=== PATIENT | female | born 1940 | race Hispanic/Latino ===

== ENCOUNTER → 2018-09-05 | Outpatient (CLI) | payer OTHER ==
[~2018-09-05] MED LIST: ACET1TAB12 PO; ASPI-1197 PO; ATEN1TAB3 PO; BENA40TA9 PO; CALC-1106 PO; FE F1CAP33 PO; METF-444 PO; PRAV40TA3 PO; SENN-107 PO
== END | disposition home or self-care (01) ==
LOC: OIH 09:51
PROVIDERS: ATTEND Internal Medicine Gastroenterology
DX: C18.3 Malignant neoplasm of hepatic flexure (principal); I25.10 Atherosclerotic heart disease of native coronary artery without angina pectoris; K44.9 Diaphragmatic hernia without obstruction or gangrene; M47.895 Other spondylosis, thoracolumbar region; N32.89 Other specified disorders of bladder; I70.90 Unspecified atherosclerosis; M85.88 Other specified disorders of bone density and structure, other site; Z90.49 Acquired absence of other specified parts of digestive tract
CPT/HCPCS: 74176

== ENCOUNTER 2019-03-30 21:31 | Inpatient (IN) | payer OTHER ==
[~2019-03-30] VITALS: Ht 152.4 cm; Wt 71.4 kg
[2019-03-30 22:24] LABS: BASOPHILS % (AUTO) 0.5 % (0.0-5.0); EOSINOPHILS % (AUTO) 0.4 % (0.0-8.0); HEMATOCRIT 37.7 % (36-48); LYMPHOCYTES % (AUTO) 11.8 % (21.0-51.0); MEAN CORPUSCULAR HEMOGLOBIN 33.8 pg (27.0-33.0); MEAN CORPUSCULAR HGB CONC 35.1 g/dL (32.0-36.0); MEAN CORPUSCULAR VOLUME 96.2 fL (79-99); MONOCYTES % (AUTO) 5.7 % (3.0-13.0); NEUTROPHILS % (AUTO) 81.6 % (40.0-77.0); PLATELET COUNT (AUTO) 207 K/uL (130-400); RED BLOOD CELL COUNT(AUTO) 3.92 MIL/uL (4.00-5.50); RED CELL DISTRIBUTION WIDTH 13.6 % (11.0-15.5); WHITE BLOOD COUNT (AUTO) 13.6 K/uL (4.8-10.8)
[2019-03-30 22:39] LABS: APPEARANCE,URINE Clear (CLEAR); BILIRUBIN,URINE Negative (NEGATIVE); COLOR,URINE Yellow (YELLOW); GLUCOSE, URINE (UA) Negative (NEGATIVE); KETONES,URINE Trace mg/dL (NEGATIVE); LEUKOCYTE ESTERASE ,URINE Trace (NEGATIVE); NITRATE,URINE Negative (NEGATIVE); OCCULT BLOOD,URINE Negative (NEGATIVE); PH,URINE 7.5 (5.0-8.0); PROTEIN,URINE Trace mg/dL (NEGATIVE)
[2019-03-30 22:41] LABS: CREATININE 1.4 mg/dL (0.5-1.5); POTASSIUM 3.8 mmol/L (3.5-5.1)
[2019-03-30 22:46] LABS: BILIRUBIN,TOTAL 0.7 mg/dL (0.2-1.0)
[2019-03-30 23:03] LABS: BACTERIA,URINE None Seen /HPF (None Seen); RBC,URINE 0-1 /HPF (0-1); SQUAMOUS EPITHELIAL CELL,UR Few /HPF (0-2); WBC,URINE 0-1 /HPF (0-1)
[2019-03-30] MEDS ORDERED: ONDANSETRON HCL 4 MG/2 ML VIAL ONE (23:28)
[2019-03-30] MEDS ORDERED: SODIUM CHLORIDE 0.9% 1000ML 1,000 ML IV ONE (23:28)
[2019-03-30] MEDS ORDERED: MORPHINE SULFATE 4 MG/1ML SYG ONE (23:28)
[2019-03-30] MEDS: SODIUM CHLORIDE 0.9% 1000ML 1,000 ML IV SCH (23:39)
[2019-03-30] MEDS ORDERED: ACETAMINOPHEN 325 MG TAB PO PRN ×2 (23:45)
[2019-03-31] MEDS ORDERED: SODIUM CHLORIDE 0.9% 1000ML 1,000 ML IV ONE (01:11)
[2019-03-31] MEDS ORDERED: PHARMACY COMMUNICATION MISC SCH (01:45)
[2019-03-31 01:48] VITALS: BP 128/72
[2019-03-31] MEDS ORDERED: AMLO5TAB9 PO (02:00)
[2019-03-31] MEDS ORDERED: METF-444 PO (02:00)
[2019-03-31] MEDS ORDERED: ESOM20CA60 PO (02:00)
[2019-03-31] MEDS ORDERED: ASPI-1181 PO (02:00)
[2019-03-31] MEDS ORDERED: FOLIC ACID (02:00)
[2019-03-31 04:00] VITALS: BP 139/69
[2019-03-31] MEDS: ZOSYN 3.375GM+NS 50ML 50 ML IV SCH ×3 (04:23→20:34)
--- NOTE | 2019-03-31 05:00 | NUR ---
EMESIS X1, YELLOW COLORED BILE WITH STRONG ODOR. PATIENT CONTINUES WITH PATENT/INTACT NG TUBE TO LIS. ZOFRAN GIVEN FOR NAUSEA. WILL CONTINUE TO MONITOR.
[2019-03-31 07:30] VITALS: BP 140/77
[2019-03-31] MEDS ORDERED: DEXTROSE 50%-WATER 50 ML DISP.SYRIN IV PRN (07:30)
[2019-03-31] MEDS ORDERED: GLUCAGON 1MG KIT 1 MG ML IM PRN (07:30)
[2019-03-31] MEDS ORDERED: HYDRALAZINE HCL 20 MG/ML VIAL IV PRN (07:45)
[2019-03-31] MEDS: CALCIUM 600 + VITAMIN D 400 TABLET PO SCH ×2 (08:00→15:49)
[2019-03-31] MEDS: FAMOTIDINE/PF 20 MG/2 ML VIAL IV SCH (08:52)
[2019-03-31] MEDS: ASPIRIN 81 MG EC TAB PO SCH (09:00)
[2019-03-31] MEDS: AMLODIPINE BESYLATE 5 MG TAB PO SCH (09:00)
[2019-03-31] MEDS: SIMVASTATIN 20 MG TABLET PO SCH (09:00)
[2019-03-31] MEDS: BENAZEPRIL HCL 10 MG TABLET PO SCH (09:00)
[2019-03-31] MEDS: HOME MEDICATION 1 EACH PO SCH (09:00)
[2019-03-31] MEDS: MORPHINE SULFATE 4 MG/1ML SYG IV PRN ×2 (10:33→18:56)
[2019-03-31 11:00] VITALS: BP 130/57
[2019-03-31] MEDS: INSULIN HUMULIN R 100 UNIT/ML 3ML SQ SCH ×3 (12:00→23:59)
[2019-03-31] MEDS: SODIUM CHLORIDE 0.9% 1000ML 1,000 ML IV SCH ×2 (12:00→20:43)
[2019-03-31 16:00] VITALS: BP 142/73
--- NOTE | 2019-03-31 16:54 | NUR ---
INITIAL: Met with pt and family this afternoon to discuss dcp. Pt states that she lives w her spouse(who is bed ridden) and 2 caregivers for her spouse. Prior to admission she was independent w ambulation and ADLs. Pt does not own any DME. Pt states that she feels safe and comfortable to [place]. Will continue to follow and wait for Md recommendations. Addendum: 03/31/19 at 1702 by MIKEY AUGUSTIN CM Amended: Links added.
--- NOTE | 2019-03-31 18:00 | NUR ---
NOTE ADMITTED YESTERDAY WITH DX SBO. NPO. NGT LIWS, NO OUTPUT FOR ME. C/O ABDOMINAL PAIN AT TIMES. NO N/V DURING MY SHIFT BUT SHE DID HAVE SOME DURING THE WASHING TUB OPERATOR. NO DISTRESS OR SOB. BBS CLEAR. BOWEL SOUNDS MINIMAL. KOFFI WITH DR MADRID STOPPED BY AND SPOKE TO PATIENT AND FAMILY ABOUT PLAN OF CARE. SHE WILL BE TREATED CONSERVATIVELY. WILL REMAIN NPO. HE ENCOURAGED HER TO AMBULATE BUT HAS BEEN VERY SLEEPY AND DROWSY FROM PRN PAIN MEDS SHE IS RECEIVING. WILL CONTINUE TO MEDICATE PRN BUT SHE IS GOING TO HAVE TO START MOVING INSTRUCTED S PROBLEM CAN RESOLVE SOONER.
[2019-03-31 20:00] VITALS: BP 139/65
[2019-04-01] VITALS (7 sets, daily range): BP systolic 124–163; BP diastolic 48–71
[2019-04-01] MEDS: MORPHINE SULFATE 2 MG/ML 1ML SYG IV PRN (03:45)
[2019-04-01 04:41] LABS: BASOPHILS % (AUTO) 0.5 % (0.0-5.0); EOSINOPHILS % (AUTO) 1.9 % (0.0-8.0); HEMATOCRIT 33.7 % (36-48); LYMPHOCYTES % (AUTO) 15.2 % (21.0-51.0); MEAN CORPUSCULAR HEMOGLOBIN 33.3 pg (27.0-33.0); MEAN CORPUSCULAR HGB CONC 34.6 g/dL (32.0-36.0); MEAN CORPUSCULAR VOLUME 96.3 fL (79-99); MONOCYTES % (AUTO) 19.2 % (3.0-13.0); NEUTROPHILS % (AUTO) 63.2 % (40.0-77.0); PLATELET COUNT (AUTO) 172 K/uL (130-400); RED CELL DISTRIBUTION WIDTH 13.7 % (11.0-15.5); WHITE BLOOD COUNT (AUTO) 4.3 K/uL (4.8-10.8)
[2019-04-01 04:54] LABS: CREATININE 1.2 mg/dL (0.5-1.5); POTASSIUM 3.7 mmol/L (3.5-5.1)
[2019-04-01] MEDS: ZOSYN 3.375GM+NS 50ML 50 ML IV SCH ×3 (05:09→20:16)
[2019-04-01] MEDS: INSULIN HUMULIN R 100 UNIT/ML 3ML SQ SCH ×3 (06:00→18:00)
[2019-04-01] MEDS: CALCIUM 600 + VITAMIN D 400 TABLET PO SCH ×2 (08:00→17:00)
[2019-04-01] MEDS: BENAZEPRIL HCL 10 MG TABLET PO SCH (08:49)
[2019-04-01] MEDS: ASPIRIN 81 MG EC TAB PO SCH (08:49)
[2019-04-01] MEDS: SODIUM CHLORIDE 0.9% 1000ML 1,000 ML IV SCH ×3 (08:50→20:26)
[2019-04-01] MEDS: SIMVASTATIN 20 MG TABLET PO SCH (08:50)
[2019-04-01] MEDS: HOME MEDICATION 1 EACH PO SCH (08:50)
[2019-04-01] MEDS: AMLODIPINE BESYLATE 5 MG TAB PO SCH (08:50)
--- NOTE | 2019-04-01 09:45 | NUR ---
DR. DIPESH GIVENS HERE TO SEE PATIENT. PATIENT REPORTS TO DR. LANDON SHE HAS NOT HAD A BOWEL MOVEMENT "SINCE LAST WEEK" AND DENIES PRESENCE OF FLATULENCE. MD TOLD PATIENT NO SURGERY PLANNED AT THIS TIME, PLAN IS TO MAINTAIN NG TUBE, NPO STATUS, IV FLUIDS AND IV ANTIBIOTICS FOR NOW. MD ALSO ENCOURAGED PATIENT TO AMBULATE TO PROMOTE BOWEL ACTIVITY.
[2019-04-01] MEDS: FAMOTIDINE/PF 20 MG/2 ML VIAL IV SCH (09:55)
[2019-04-02 03:50] VITALS: BP 158/68
[2019-04-02] MEDS: ZOSYN 3.375GM+NS 50ML 50 ML IV SCH ×3 (04:25→20:26)
[2019-04-02 04:38] LABS: BASOPHILS % (AUTO) 0.9 % (0.0-5.0); EOSINOPHILS % (AUTO) 2.5 % (0.0-8.0); LYMPHOCYTES % (AUTO) 28.7 % (21.0-51.0); MEAN CORPUSCULAR HEMOGLOBIN 32.8 pg (27.0-33.0); MEAN CORPUSCULAR HGB CONC 34.1 g/dL (32.0-36.0); MEAN CORPUSCULAR VOLUME 96.3 fL (79-99); MONOCYTES % (AUTO) 20.1 % (3.0-13.0); NEUTROPHILS % (AUTO) 47.8 % (40.0-77.0); NUCLEATED RED BLOOD CELLS 0.1 % (0.0-0.19); PLATELET COUNT (AUTO) 168 K/uL (130-400); RED BLOOD CELL COUNT(AUTO) 3.53 MIL/uL (4.00-5.50); RED CELL DISTRIBUTION WIDTH 13.4 % (11.0-15.5); WHITE BLOOD COUNT (AUTO) 3.8 K/uL (4.8-10.8)
[2019-04-02 04:41] LABS: CREATININE 1.2 mg/dL (0.5-1.5); POTASSIUM 3.2 mmol/L (3.5-5.1)
[2019-04-02] MEDS: INSULIN HUMULIN R 100 UNIT/ML 3ML SQ SCH ×4 (06:00→18:00)
[2019-04-02] MEDS: ONDANSETRON HCL 4 MG/2 ML VIAL IV PRN ×2 (06:17→22:17)
[2019-04-02] MEDS: MORPHINE SULFATE 2 MG/ML 1ML SYG IV PRN (06:24)
[2019-04-02] MEDS ORDERED: POTASSIUM CHLORIDE 10% ELIXIR 20 MEQ/15 ML UDCUP PO PRN (07:00)
[2019-04-02 07:40] VITALS: BP 143/58
[2019-04-02] MEDS: SODIUM CHLORIDE 0.9% 1000ML 1,000 ML IV SCH ×2 (07:44→20:25)
[2019-04-02] MEDS: CALCIUM 600 + VITAMIN D 400 TABLET PO SCH ×2 (08:00→17:00)
--- NOTE | 2019-04-02 08:00 | NUR ---
INITIAL ASSESSMENT PATIENT LAYING BED, REPORTS "NOT FEELING GOOD". I ASKED PATIENT TO CLARIFY WHAT SHE MEANS BY "NOT FEELING GOOD" AND PATIENT REPLIED "JUST BY STOMACH, I DO NOT FEEL COMFORTABLE AT ALL." I ASSESSED PATIENTS ABDOMEN AND ABDOMEN DOES APPEAR SLIGHTLY DISTENDED. PATIENT REPORTS ABSENCE OF FLATUS OR BOWEL MOVEMENT, REPORT NO NAUSEA/VOMITING. ESTATE TAX EXAMINER NURSE TOLD ME THAT HOSPITALIST ADOLESCENT COORDINATOR INFORMED AND ABDOMINAL XRAY ORDERED, WILL CONTINUE TO MONITOR.
[2019-04-02] MEDS: SIMVASTATIN 20 MG TABLET PO SCH (08:13)
[2019-04-02] MEDS: AMLODIPINE BESYLATE 5 MG TAB PO SCH (08:13)
[2019-04-02] MEDS: ASPIRIN 81 MG EC TAB PO SCH (08:13)
[2019-04-02] MEDS: BENAZEPRIL HCL 10 MG TABLET PO SCH (08:13)
[2019-04-02] MEDS: HOME MEDICATION 1 EACH PO SCH (08:13)
--- NOTE | 2019-04-02 09:00 | NUR ---
REASSESSMENT PATIENT REPORTS "FEELING BETTER AFTER SHOWER". PATIENT RESTING IN BED AND APPEARS COMFORTABLE. I ENCOURAGED PATIENT TO AMBULATE TOLERATED DR. LANDON INSTRUCTED HER YESTERDAY THAT AMBULATION WILL PROMOTE BOWEL ACTIVITY.
[2019-04-02] MEDS: FAMOTIDINE/PF 20 MG/2 ML VIAL IV SCH (10:24)
--- NOTE | 2019-04-02 11:00 | NUR ---
MARILIA PÉREZ PA HERE TO SEE PATIENT. STATES TO CONTINUE CURRENT CONSERVATIVE MANAGEMENT NPO, NG TUBE, IV FLUIDS. ALSO STATES HE SAW ABDOMINAL XRAY RESULTS. PATIENT REPORTS NO FLATUS OR BOWEL MOVEMENT. MD STATES HE ENCOURAGED PATIENT TO AMBULATE. NO NEW ORDERS AT THIS TIME.
[2019-04-02 11:25] VITALS: BP 142/65
[2019-04-02 16:24] VITALS: BP 178/79
[2019-04-02 17:45] VITALS: BP 120/64
--- NOTE | 2019-04-02 17:45 | NUR ---
BLOOD PRESSURE RECHECK BLOOD PRESSURE REPORTED AT 178/79 VIA AUTOMATIC BLOOD PRESSURE MACHINE. OBTAINED PRN APRESOLINE TO ADMINISTER TO PATIENT. WHEN I ENTERED ROOM PATIENT SITTING ON CHAIR AND REPORTS FEELING "DIZZY". OBTAIN MANUAL BLOOD PRESSURE READING 120/64, HR 80. WILL COMMENT THAT PATIENT HAS NOT STOOD UP FOR SEVERAL HOURS, DESPITE FREQUENT ENCOURAGEMENT TO AMBULATE OR REMEMBER TO SWITCH POSITIONS WHILE LAYING IN BED. INSTRUCTED PATIENT THAT WHEN SHE WANTS TO WALK AFTER LAYING IN BED FOR AN EXTENDED PERION, IT IS IMPORTANT TO SIT ON SIDE OF BED FOR SEVERAL MINUTES TO GIVE BODY TIME TO READJUST TO CHANGE IN BLOOR PRESSURE. PATIENT VERBALIZED UNDERSTANDING. DID NOT ADMINISTER APRESOLINE. ASSISTED PATIENT BACK TO BED UNTIL "DIZZY" SENSATION SUBSIDED.
[2019-04-02] MEDS: LIDOCAINE HCL-MPF 1% 2ML VIAL IVP PRN (18:22)
[2019-04-02] MEDS: POTASSIUM CHLORIDE 10MEQ/100ML 100 ML IV PRN (18:23)
[2019-04-02 19:44] VITALS: BP 139/51
[2019-04-02] MEDS: MORPHINE SULFATE 4 MG/1ML SYG IV PRN (22:14)
[2019-04-03] VITALS (7 sets, daily range): BP systolic 114–154; BP diastolic 56–84
[2019-04-03 04:28] LABS: BASOPHILS % (AUTO) 1.1 % (0.0-5.0); EOSINOPHILS % (AUTO) 1.6 % (0.0-8.0); HEMATOCRIT 32.9 % (36-48); LYMPHOCYTES % (AUTO) 27.5 % (21.0-51.0); MEAN CORPUSCULAR HEMOGLOBIN 33.9 pg (27.0-33.0); MEAN CORPUSCULAR HGB CONC 35.1 g/dL (32.0-36.0); MEAN CORPUSCULAR VOLUME 96.5 fL (79-99); MONOCYTES % (AUTO) 24.5 % (3.0-13.0); NEUTROPHILS % (AUTO) 45.3 % (40.0-77.0); NUCLEATED RED BLOOD CELLS 0.1 % (0.0-0.19); PLATELET COUNT (AUTO) 168 K/uL (130-400); RED BLOOD CELL COUNT(AUTO) 3.41 MIL/uL (4.00-5.50); RED CELL DISTRIBUTION WIDTH 13.4 % (11.0-15.5); WHITE BLOOD COUNT (AUTO) 2.6 K/uL (4.8-10.8)
[2019-04-03 04:33] LABS: POTASSIUM 3.4 mmol/L (3.5-5.1)
[2019-04-03] MEDS: ZOSYN 3.375GM+NS 50ML 50 ML IV SCH ×3 (05:05→20:35)
[2019-04-03 05:20] LABS: BAND NEUTROPHILS % (MANUAL) 22 % (0-2); BASOPHILS % (MANUAL) 1 % (0-2); EOSINOPHILS % (MANUAL) 2 % (1-6); LYMPHOCYTES % (MANUAL) 26 % (22-44); MAN.DIFF COMMENT-IMPRESSION MANUAL DIFFERENTIAL; MONOCYTES % (MANUAL) 28 % (2-9); PLATELET MORPHOLOGY COMMENT ADEQUATE; REACTIVE LYMPHOCYTES 2 % (0-0); SEGMENTED NEUTROPHILS % 19 % (40-70)
[2019-04-03] MEDS: INSULIN HUMULIN R 100 UNIT/ML 3ML SQ SCH ×4 (06:00→18:00)
[2019-04-03] MEDS: LACTATED RINGERS 1000ML 1,000 ML IV SCH ×2 (07:35→20:20)
[2019-04-03] MEDS: CALCIUM 600 + VITAMIN D 400 TABLET PO SCH ×2 (08:00→17:00)
[2019-04-03] MEDS: FAMOTIDINE/PF 20 MG/2 ML VIAL IV SCH (09:00)
[2019-04-03] MEDS: BENAZEPRIL HCL 10 MG TABLET PO SCH (09:00)
[2019-04-03] MEDS: ASPIRIN 81 MG EC TAB PO SCH (09:00)
[2019-04-03] MEDS: AMLODIPINE BESYLATE 5 MG TAB PO SCH (09:00)
[2019-04-03] MEDS: HOME MEDICATION 1 EACH PO SCH (09:00)
[2019-04-03] MEDS: SIMVASTATIN 20 MG TABLET PO SCH (09:00)
--- NOTE | 2019-04-03 09:00 | NUR ---
pt denies any flatulance Addendum: 04/03/19 at 1054 by NADYA BAEZA RN Amended: Links added.
--- NOTE | 2019-04-03 13:59 | NUR ---
CM NOTES CHART REVIEWED, PLAN OF CARE PROGRESS ASSESSED, INTAKE STILL NOT ADEQUATE, AMBUALATION/STRENGTH IS GOOD. WILL FOLLOW FOR MD RECOMMENDATION FOR AFTERCARE Addendum: 04/03/19 at 1401 by MARCIANO JIMENEZ RN CM Amended: Links added.
[2019-04-03] MEDS ORDERED: BISACODYL 10 MG SUPP.RECT RC ONE (18:00)
[2019-04-04] VITALS (16 sets, daily range): BP systolic 140–190; BP diastolic 54–96
--- NOTE | 2019-04-04 | NUR ---
PT HAS BEEN STABLE. CONTINUES ON IV FLUIDS. NG SUCTION, INTERMITTENT. DARK GREEN COLOR BEING COLLECTED. AAO3. PERRLA. PT STATES NO PAIN. SUPPOSITORY GIVEN, CURRENTLY NO BM. ABLE TO AMBULATE. CONTINUES ON ABTS.
[2019-04-04] MEDS: LACTATED RINGERS 1000ML 1,000 ML IV SCH (02:29)
[2019-04-04 04:44] LABS: BASOPHILS % (AUTO) 0.5 % (0.0-5.0); EOSINOPHILS % (AUTO) 1.6 % (0.0-8.0); HEMATOCRIT 32.9 % (36-48); LYMPHOCYTES % (AUTO) 19.1 % (21.0-51.0); MEAN CORPUSCULAR HGB CONC 34.5 g/dL (32.0-36.0); MEAN CORPUSCULAR VOLUME 95.5 fL (79-99); NEUTROPHILS % (AUTO) 51.8 % (40.0-77.0); NUCLEATED RED BLOOD CELLS 0.3 % (0.0-0.19); PLATELET COUNT (AUTO) 192 K/uL (130-400); RED BLOOD CELL COUNT(AUTO) 3.44 MIL/uL (4.00-5.50); RED CELL DISTRIBUTION WIDTH 13.3 % (11.0-15.5); WHITE BLOOD COUNT (AUTO) 3.2 K/uL (4.8-10.8)
[2019-04-04 04:54] LABS: POTASSIUM 3.6 mmol/L (3.5-5.1)
[2019-04-04] MEDS: ZOSYN 3.375GM+NS 50ML 50 ML IV SCH ×3 (05:08→20:22)
[2019-04-04] MEDS: INSULIN HUMULIN R 100 UNIT/ML 3ML SQ SCH ×4 (06:00→18:00)
[2019-04-04] MEDS: CALCIUM 600 + VITAMIN D 400 TABLET PO SCH ×2 (08:00→17:00)
[2019-04-04] MEDS: BENAZEPRIL HCL 10 MG TABLET PO SCH (09:00)
[2019-04-04] MEDS: SIMVASTATIN 20 MG TABLET PO SCH (09:00)
[2019-04-04] MEDS: AMLODIPINE BESYLATE 5 MG TAB PO SCH (09:00)
[2019-04-04] MEDS: ASPIRIN 81 MG EC TAB PO SCH (09:00)
[2019-04-04] MEDS: FAMOTIDINE/PF 20 MG/2 ML VIAL IV SCH (09:00)
[2019-04-04] MEDS: HOME MEDICATION 1 EACH PO SCH (09:00)
--- NOTE | 2019-04-04 10:24 | NUR ---
KOFFI ARTEAGA AWARE OF PT'S ABD X RAY RESUTLS
--- NOTE | 2019-04-04 13:00 | NUR ---
DR. JULIUS SÁNCHEZ
--- NOTE | 2019-04-04 14:20 | NUR ---
DR. MADRID PAGED AGAIN, STILL PENDING CALL BACK
[2019-04-04] MEDS ORDERED: IOHEXOL-350 75 ML VIAL IV ONE (16:04)
--- NOTE | 2019-04-04 16:18 | NUR ---
RDSCREEN Pt with SBO and constipation. NPO x 5 Days, NGT for suction. Lactated Ringer's in place. LBM 03/28/19. RD to continue to monitor for SBO resolution. If SBO persists, RD to rec alternative nutrition measures. RD to continue to monitor. Monitored labs: BUN 27, GFR 57, Ca 7.7, Alb 4.0. Please notify as nutritional concerns arise. Thank you. Addendum: 04/04/19 at [address] Amended: Links added.
--- NOTE | 2019-04-04 16:45 | NUR ---
CT ABD/PELVIS , PT REFUSES, STATES ANOTHER FROM A [facility], SHE DOESNT REMEMBER WHO, TOLD HER NOT TO GET ANY IV CONTRAST. MARILIA RAIN PAGED
--- NOTE | 2019-04-04 16:50 | NUR ---
KOFFI AWARE OF PT'S REFUSAL FOR CT ABD/PELVIS W IV CONTRAST BC SHE WAS TOLD BY ANOTHER DR. NOT TO HAVE IT DONE, DUE THAT IT WOULD "MESSED UP HER KIDNEYS" ( PT VERBALIZED) KOFFI GIVEN PT'S LATEST LABS RESULTS STATED TO LET THE PATIENT KNOW THAT AT THE MOMENT HER LAB'S AND KIDNEY FUNCTION IS NORMAL, AND THAT PERHAPS AT THE TIME SHE WAS TOLD THAT , HER KIDNEY FUNCTION WAS NOT GOOD, BUT NOW IT IS. AND THAT THE RADIOLOGIST WOULD NOT ALLOW HER TO EVEN HAVE THE IMAGE DONE, IF HER KIDNEY FUNCTION WAS BAD. BUT IF SHE REFUSES TO DO THE CT/ABD WITHOUT CONTRAST.
--- NOTE | 2019-04-04 16:52 | NUR ---
PT MADE AWARE OF KOFFI'S ANSWER AND THAT IT WAS HER DECISION, IT WAS HER CHOICE FAMILY MEMBER PRESENT TOLD PT WOULD GIVE HER A COUPLE OF MINUTES TO THINK ABOUT IT AND WILL COME BACK FOR AN ANSWER
--- NOTE | 2019-04-04 17:06 | NUR ---
PT AGREES FOR CT
--- NOTE | 2019-04-04 18:25 | NUR ---
DR. MADRID CONVEYED CT RESUTLS 0RDERS TO PREPARE FOR SURGERY, HOUSE AWARE REFER TO CPOE
[2019-04-04] MEDS ORDERED: FENTANYL CITRATE PF 50 MCG/1 ML 2ML VIAL ONE ×2 (19:17→22:04)
[2019-04-04] MEDS ORDERED: MIDAZOLAM HCL 1 MG/ML 2ML VIAL ONE (19:17)
[2019-04-04] MEDS ORDERED: EPHEDRINE SULFATE 50 MG/ML AMPULE ONE (20:08)
--- NOTE | 2019-04-04 20:28 | NUR ---
SURGERY TO SURGERY VIA BED, CONSENT PENDING TO BE SIGNED , PER PATIENT WANTS TO TALK TO DR. MADRID FIRST BEFORE SIGNING, OR NURSE INFORMED AND AWARE, PATIENTS FAMILY AT BEDSIDE
[2019-04-04] MEDS ORDERED: ALBUMIN (HUMAN) 5% 250 ML IV ONE (20:52)
[2019-04-04] MEDS ORDERED: LABETALOL HCL 5 MG/ML 20ML VIAL IV ONE (23:13)
[2019-04-05] VITALS (53 sets, daily range): BP systolic 60–152; BP diastolic 29–68
[2019-04-05] MEDS ORDERED: PROPOFOL 1000 MG/100 ML 100 ML IV ONE (00:15)
[2019-04-05] MEDS: LACTATED RINGERS 1000ML 1,000 ML IV SCH ×2 (00:47→12:20)
[2019-04-05] MEDS: MORPHINE SULFATE 2 MG/ML 1ML SYG IV PRN ×2 (01:54→05:16)
[2019-04-05 04:36] LABS: POTASSIUM 3.6 mmol/L (3.5-5.1)
[2019-04-05 04:39] LABS: BASOPHILS % (AUTO) 0.1 % (0.0-5.0); HEMATOCRIT 32.9 % (36-48); LYMPHOCYTES % (AUTO) 4.2 % (21.0-51.0); MEAN CORPUSCULAR HEMOGLOBIN 33.6 pg (27.0-33.0); MEAN CORPUSCULAR HGB CONC 34.8 g/dL (32.0-36.0); MEAN CORPUSCULAR VOLUME 96.6 fL (79-99); MONOCYTES % (AUTO) 6.9 % (3.0-13.0); NEUTROPHILS % (AUTO) 88.8 % (40.0-77.0); PLATELET COUNT (AUTO) 180 K/uL (130-400); RED CELL DISTRIBUTION WIDTH 13.4 % (11.0-15.5)
[2019-04-05] MEDS: ZOSYN 3.375GM+NS 50ML 50 ML IV SCH ×3 (05:15→20:33)
[2019-04-05] MEDS: INSULIN HUMULIN R 100 UNIT/ML 3ML SQ SCH ×4 (06:00→18:00)
[2019-04-05] MEDS: PROPOFOL 1000 MG/100 ML IV PRN ×2 (07:05→20:33)
--- NOTE | 2019-04-05 07:31 | NUR ---
PATIENT STARTED ON SEDATION VACATION. PROPOFOL IV OFF.
--- NOTE | 2019-04-05 07:55 | NUR ---
PATIENT STARTED ON CPAP TRIALS 08/10. PATIENT AWAKE, FOLLOWING COMMANDS. TOLERATING CPAP TRIALS.
[2019-04-05] MEDS: CALCIUM 600 + VITAMIN D 400 TABLET PO SCH ×2 (08:00→17:00)
[2019-04-05] MEDS ORDERED: DOPAMINE 800MG/D5 250ML 250 ML IV ONE (08:29)
--- NOTE | 2019-04-05 08:30 | NUR ---
PATIENT HR DROPED TO THE 30S. SBP DROPPED TO 60S. PATIENT BECAME SYMPTOMATIC, NOT RESPONDING TO COMMANDS. INFORMED DR. COMER. ORDERS GIVEN. PATIENT BACK ON AC MODE ON VENTILATOR. DOPAMINE IV STARTED. EKG DONE. CONSULTED CARDIOLOGY.
[2019-04-05] MEDS ORDERED: DOPAMINE 800MG/D5 250ML 250 ML IV PRN (08:45)
[2019-04-05] MEDS: BENAZEPRIL HCL 10 MG TABLET PO SCH (09:00)
[2019-04-05] MEDS: HOME MEDICATION 1 EACH PO SCH (09:00)
[2019-04-05] MEDS: SIMVASTATIN 20 MG TABLET PO SCH (09:00)
[2019-04-05] MEDS: ASPIRIN 81 MG EC TAB PO SCH (09:00)
[2019-04-05] MEDS: AMLODIPINE BESYLATE 5 MG TAB PO SCH (09:00)
[2019-04-05] MEDS ORDERED: LIDOCAINE HCL 1% 20 ML VIAL ONE (09:32)
[2019-04-05] MEDS ORDERED: ATROPINE SULFATE 0.1 MG/ML 10 ML SYG IVP ONE (09:32)
[2019-04-05] MEDS ORDERED: BIVALIRUDIN 250 MG/VIAL IV ONE (09:32)
[2019-04-05] MEDS ORDERED: IOHEXOL-350 50ML VIAL IV ONE (09:33)
[2019-04-05] MEDS ORDERED: FENTANYL CITRATE PF 50 MCG/1 ML 2ML VIAL ONE (09:33)
[2019-04-05] MEDS ORDERED: MIDAZOLAM HCL 1 MG/ML 2ML VIAL ONE (09:33)
[2019-04-05] MEDS ORDERED: DOPAMINE HCL 400 MG/D5%-WATER 0 ML IV ONE (09:33)
[2019-04-05] MEDS ORDERED: HEPARIN SODIUM 1000UNIT/ML 10ML VIAL ONE (09:33)
[2019-04-05] MEDS ORDERED: IOHEXOL 350 MG/ML 100ML INFUS..BTL IV ONE (09:33)
[2019-04-05] MEDS ORDERED: ASPIRIN 325 MG TABLET ONE (09:36)
--- NOTE | 2019-04-05 09:44 | NUR ---
PRE ALGEBRA TEACHER STAFF AT BEDSIDE.
[2019-04-05] MEDS: FAMOTIDINE/PF 20 MG/2 ML VIAL IV SCH (09:48)
[2019-04-05] MEDS ORDERED: ASPIRIN 325MG EC TAB 325 MG TABLET.DR PO SCH (10:00)
[2019-04-05 10:08] LABS: INR 1.01 (0.85-1.15); PROTHROMBIN TIME 10.6 SEC (9.6-11.6)
[2019-04-05 10:28] LABS: TROPONIN I 1.09 ng/mL (0.00-0.06)
[2019-04-05] MEDS ORDERED: CLOPIDOGREL BISULFATE 300 MG TAB ONE (10:38)
[2019-04-05] MEDS ORDERED: ASPIRIN 81MG TAB.CHEW ONE (10:38)
[2019-04-05] MEDS ORDERED: SODIUM CHLORIDE 0.9% 1000ML 1,000 ML IV SCH (10:54)
[2019-04-05] MEDS ORDERED: NITROGLYCERIN 5 MG/ML 10 ML VIAL IV ONE (10:55)
--- NOTE | 2019-04-05 11:20 | NUR ---
PATIENT HAS ARRIVED FROM MOBILE APPLICATION DEVELOPER. PATIENT STABLE. DOPAMINE IV OFF, PROPOFOL IV STARTED. LABS AND EKG OBTAINED.
--- NOTE | 2019-04-05 11:50 | NUR ---
DR. MADRID VISITED AND ASSESSED PATIENT. UPDATED ON PATIENT LABS AND STATUS.
--- NOTE | 2019-04-05 13:25 | NUR ---
DR. SCHULTZ VISITED AND ASSESSED PATIENT. UPDATED ON PATIENT LABS AND STATUS.
--- NOTE | 2019-04-05 14:55 | NUR ---
DC RIGHT FEMORAL SHEATH. APPLIED PRESSURE 30MIN, APPLIED PRESSURE GAUZE. NO SIGNS OF HEMATOMA.
[2019-04-05 15:52] LABS: ABG BASE EXCESS -9.2 mmol/L (-2.0-3.0); ABG OXYGEN SATURATION 98.2 % (95.0-99.0); ABG PCO2 25 mmHg (32-45)
[2019-04-05 17:22] LABS: TROPONIN I 69.62 ng/mL (0.00-0.06)
--- NOTE | 2019-04-05 18:45 | NUR ---
PT WISHES TO SEE DR. MADRID BEFORE SIGNING CONSENT, HOSPITALIST DIRECTOR OF MARKET RESEARCH CAREER AGENT AWARE OF PLAN OF CARE, PT DENIES SOB OR CHEST PAIN OR NURSEABHIJIT AWARE OF PLAN OF CARE AND PT'S WISHES ENDORSE CARE TO NIGHT NURSE
--- NOTE | 2019-04-05 19:00 | NUR ---
RECEIVED BEDSIDE REPORT PT IS VENTED AND SEDATED ON PROPOFOL.PT. IS FOR CPAP TRIAL TOMORROW MORNING.FAMILY TO BEDSIDE.
[2019-04-05 23:43] LABS: TROPONIN I 83.22 ng/mL (0.00-0.06)
[2019-04-06] VITALS (36 sets, daily range): BP systolic 100–127; BP diastolic 43–67
--- NOTE | 2019-04-06 | NUR ---
Pt. opens eyes and moves all extremeties,not following commands.Sedation titrated See I&O record.Will continue to monitor pt.
[2019-04-06] MEDS: LACTATED RINGERS 1000ML 1,000 ML IV SCH ×3 (00:18→21:27)
[2019-04-06 03:53] LABS: HEMATOCRIT 28.6 % (36-48); LYMPHOCYTES % (AUTO) 4.7 % (21.0-51.0); MEAN CORPUSCULAR HEMOGLOBIN 33.7 pg (27.0-33.0); MEAN CORPUSCULAR HGB CONC 35.1 g/dL (32.0-36.0); MEAN CORPUSCULAR VOLUME 95.9 fL (79-99); MONOCYTES % (AUTO) 9.4 % (3.0-13.0); NEUTROPHILS % (AUTO) 85.9 % (40.0-77.0); PLATELET COUNT (AUTO) 191 K/uL (130-400); RED BLOOD CELL COUNT(AUTO) 2.98 MIL/uL (4.00-5.50); RED CELL DISTRIBUTION WIDTH 13.7 % (11.0-15.5)
[2019-04-06 04:13] LABS: ALBUMIN 1.9 g/dL (3.5-5.0); BILIRUBIN,TOTAL 0.5 mg/dL (0.2-1.0); CREATININE 1.3 mg/dL (0.5-1.5); MAGNESIUM 2.4 mg/dL (1.80-2.40); POTASSIUM 3.2 mmol/L (3.5-5.1); TOTAL PROTEIN, SERUM 4.9 g/dL (6.0-8.3)
[2019-04-06] MEDS: ZOSYN 3.375GM+NS 50ML 50 ML IV SCH ×3 (04:31→21:26)
[2019-04-06 04:52] LABS: TROPONIN I 60.79 ng/mL (0.00-0.06)
[2019-04-06] MEDS: INSULIN HUMULIN R 100 UNIT/ML 3ML SQ SCH ×4 (05:38→18:00)
--- NOTE | 2019-04-06 06:50 | NUR ---
PT.FOR CPAP TRIAL TODAY.PROPOFOL OFF FOR SEDATION VACATION.V/S REMAINED STABLE.WILL CONTINUE TO MONITOR PT.
--- NOTE | 2019-04-06 07:45 | NUR ---
PATIENT STARTED ON CPAP 08/10. VENTILATOR WEANING TRIALS.
[2019-04-06] MEDS: ASPIRIN 81 MG EC TAB PO SCH (08:24)
[2019-04-06] MEDS: CALCIUM 600 + VITAMIN D 400 TABLET PO SCH ×2 (08:24→18:24)
[2019-04-06] MEDS: SIMVASTATIN 20 MG TABLET PO SCH (08:24)
[2019-04-06] MEDS: CLOPIDOGREL BISULFATE 75 MG TAB PO SCH (08:24)
[2019-04-06] MEDS: AMLODIPINE BESYLATE 5 MG TAB PO SCH (08:25)
[2019-04-06] MEDS: FAMOTIDINE/PF 20 MG/2 ML VIAL IV SCH (08:25)
[2019-04-06] MEDS: HOME MEDICATION 1 EACH PO SCH (09:00)
[2019-04-06] MEDS: BENAZEPRIL HCL 10 MG TABLET PO SCH (09:12)
[2019-04-06 09:41] LABS: ABG BASE EXCESS -5.3 mmol/L (-2.0-3.0); ABG OXYGEN SATURATION 98.3 % (95.0-99.0); ABG PCO2 30 mmHg (32-45)
--- NOTE | 2019-04-06 10:10 | NUR ---
UPDATED ON PATIENT VENTILATOR WEANING TRIALS. ORDERS TO EXTUBATE GIVEN, PATIENT EXTUBATED.
[2019-04-06] MEDS ORDERED: SODIUM CHLORIDE 0.9% 250 ML IV ONE (13:00)
[2019-04-06] MEDS: ATORVASTATIN CALCIUM 20 MG TABLET PO SCH (21:26)
[2019-04-06] MEDS: METOPROLOL TARTRATE 25 MG TAB PO SCH (21:27)
[2019-04-07] VITALS (19 sets, daily range): BP systolic 107–140; BP diastolic 45–69
[2019-04-07 03:58] LABS: HEMATOCRIT 26.3 % (36-48); MEAN CORPUSCULAR HGB CONC 33.5 g/dL (32.0-36.0); MEAN CORPUSCULAR VOLUME 95.5 fL (79-99); PLATELET COUNT (AUTO) 164 K/uL (130-400); RED BLOOD CELL COUNT(AUTO) 2.76 MIL/uL (4.00-5.50); RED CELL DISTRIBUTION WIDTH 13.9 % (11.0-15.5); WHITE BLOOD COUNT (AUTO) 12.6 K/uL (4.8-10.8)
[2019-04-07 04:16] LABS: CREATININE 1.1 mg/dL (0.5-1.5)
[2019-04-07] MEDS: ZOSYN 3.375GM+NS 50ML 50 ML IV SCH ×3 (05:31→20:37)
[2019-04-07] MEDS: INSULIN HUMULIN R 100 UNIT/ML 3ML SQ SCH ×5 (05:37→23:45)
[2019-04-07] MEDS: POTASSIUM CHLORIDE 10MEQ/100ML 100 ML IV PRN (06:11)
[2019-04-07] MEDS: LIDOCAINE HCL-MPF 1% 2ML VIAL IVP PRN (06:23)
[2019-04-07] MEDS: CLOPIDOGREL BISULFATE 75 MG TAB PO SCH (08:10)
[2019-04-07] MEDS: BENAZEPRIL HCL 10 MG TABLET PO SCH (08:10)
[2019-04-07] MEDS: METOPROLOL TARTRATE 25 MG TAB PO SCH ×2 (08:10→20:38)
[2019-04-07] MEDS: CALCIUM 600 + VITAMIN D 400 TABLET PO SCH ×2 (08:10→16:41)
[2019-04-07] MEDS: FAMOTIDINE/PF 20 MG/2 ML VIAL IV SCH (08:10)
[2019-04-07] MEDS: ASPIRIN 81 MG EC TAB PO SCH (08:10)
[2019-04-07] MEDS: HOME MEDICATION 1 EACH PO SCH (09:00)
--- NOTE | 2019-04-07 14:00 | NUR ---
TRANSFER FROM ICU RECEIVED PT FROM Frannie PADILLA RN. PT UP IN CHAIR, RESTING COMFORTABLY, CALL LIGHT WITHIN REACH, FAMILY AT BEDSIDE.
--- NOTE | 2019-04-07 15:00 | NUR ---
INCENTIVE SPIROMETRY AVERAGE OF 1000ML PER ATTEMPT, ENCOURAGED INCREASED FREQUENCY TO EVERY 1/2 HOURS WHILE AWAKE AND EXPLAINED THE RISKS AND BENEFITS OF INCREASED USE AND PERFORMANCE OF INCENTIVE SPIROMETRY. PT RETURNED DEMONSTRATION AND FAMILY ENCOURAGED TO ASSIST WITH HOURLY USE. CALL LIGHT WITHIN REACH, FAMILY AT BEDSIDE.
[2019-04-07] MEDS: LACTATED RINGERS 1000ML 1,000 ML IV SCH (17:33)
--- NOTE | 2019-04-07 17:33 | NUR ---
TOLERATING FOODS FULL LIQUID THEN SOFT WITH NO C/O NAUSEA OR ABDOMINAL PAIN, TOLERATING WELL, LACTATED RINGERS FLUID STOPPED.
[2019-04-07] MEDS ORDERED: LACTULOSE 20 GM/30 ML UDCUP PO PRN (20:00)
[2019-04-07] MEDS: ATORVASTATIN CALCIUM 20 MG TABLET PO SCH (20:37)
[2019-04-08 03:00] VITALS: BP 133/65
[2019-04-08 04:52] LABS: HEMATOCRIT 28.5 % (36-48); MEAN CORPUSCULAR HEMOGLOBIN 33.7 pg (27.0-33.0); MEAN CORPUSCULAR VOLUME 96.2 fL (79-99); NUCLEATED RED BLOOD CELLS 0.1 % (0.0-0.19); PLATELET COUNT (AUTO) 168 K/uL (130-400); RED BLOOD CELL COUNT(AUTO) 2.97 MIL/uL (4.00-5.50); RED CELL DISTRIBUTION WIDTH 13.7 % (11.0-15.5); WHITE BLOOD COUNT (AUTO) 10.1 K/uL (4.8-10.8)
[2019-04-08] MEDS: ZOSYN 3.375GM+NS 50ML 50 ML IV SCH ×3 (04:59→20:40)
[2019-04-08 05:00] LABS: MAGNESIUM 2.1 mg/dL (1.80-2.40); POTASSIUM 3.3 mmol/L (3.5-5.1)
[2019-04-08] MEDS: POTASSIUM CHLORIDE 20 MEQ ERTAB PO PRN ×2 (05:30→07:48)
[2019-04-08 05:49] LABS: BAND NEUTROPHILS % (MANUAL) 2 % (0-2); EOSINOPHILS % (MANUAL) 4 % (1-6); LYMPHOCYTES % (MANUAL) 7 % (22-44); MAN.DIFF COMMENT-IMPRESSION MANUAL DIFFERENTIAL; MONOCYTES % (MANUAL) 1 % (2-9); SEGMENTED NEUTROPHILS % 86 % (40-70)
[2019-04-08 05:52] LABS: PLATELET MORPHOLOGY COMMENT ADEQUATE
[2019-04-08] MEDS: INSULIN HUMULIN R 100 UNIT/ML 3ML SQ SCH ×3 (06:00→20:42)
[2019-04-08 07:39] VITALS: BP 122/61
[2019-04-08] MEDS: ASPIRIN 81 MG EC TAB PO SCH (07:47)
[2019-04-08] MEDS: FAMOTIDINE/PF 20 MG/2 ML VIAL IV SCH (07:47)
[2019-04-08] MEDS: CLOPIDOGREL BISULFATE 75 MG TAB PO SCH (07:48)
[2019-04-08] MEDS: CALCIUM 600 + VITAMIN D 400 TABLET PO SCH ×2 (07:48→17:19)
[2019-04-08] MEDS: METOPROLOL TARTRATE 25 MG TAB PO SCH ×2 (07:48→20:42)
[2019-04-08] MEDS: BENAZEPRIL HCL 10 MG TABLET PO SCH (07:48)
[2019-04-08] MEDS: POLYETHYLENE GLYCOL 3350 17 GM POWD.PACK PO SCH (07:48)
[2019-04-08] MEDS: HOME MEDICATION 1 EACH PO SCH (07:54)
--- NOTE | 2019-04-08 08:00 | NUR ---
ASSESSMENT PT IS AAOX3 DENIES CP DENIES SOB DENIES NV NO COMPLAINTS, SITTING UPRIGHT IN BED. FAMILY IS AT BEDSIDE, PATIENT HAS NO VISIBLE SIGNS OF DISTRESS NOTED. AM MEDS GIVEN. CALL LIGHT WITHIN REACH.
[2019-04-08] MEDS: LUBIPROSTONE 24 MCG CAP PO SCH ×2 (09:20→17:19)
[2019-04-08 11:20] VITALS: BP 111/58
[2019-04-08] MEDS ORDERED: BISACODYL 10 MG SUPP.RECT RC SCH (12:45)
--- NOTE | 2019-04-08 13:58 | NUR ---
BESSY MONACO CALLED MADELYN NO ANSWER. SPOKE TO BENJAMIN SENT TO SECONDARY FAX [facility]. BAILEY BOSS. WILL GO VIA FACILITY VAN. PENDING BM. Addendum: 04/08/19 at 1400 by GEOVANNI HOPKINS RN CM Amended: Links added.
[2019-04-08 15:21] VITALS: BP 122/64
--- NOTE | 2019-04-08 15:51 | NUR ---
RD Follow up Note Pt post op day #4 small bowel procedure as per EMR. Pt tolerating 75gm CC, Soft/Costilla diet. Pt/family reports pt not receiving Ensure at mealtimes;RD to add and verify with food staff. Pt LBM 03/28/19; When medically feasible, rec to add stool softener or Laxative secondary to constipation. Pt monitored labs: K 3.3, BUN 25, GFR 57, Glu 148, Ca 7.0, Alb 1.9. RD to continue to monitor. Please notify RD as additional nutritional concerns arise. Thank you. Addendum: 04/08/19 at [address] Amended: Links added.
--- NOTE | 2019-04-08 18:20 | NUR ---
TRANSFER TO ROOM 305 REPORT GIVEN TO BUSHRA PARIKH. TELE PACK CHANGED OUT, ALL BELONGINGS TAKEN WITH PATIENT AND FAMILY MEMBER UPSTAIRS.
[2019-04-08 19:22] VITALS: BP 119/63
[2019-04-08] MEDS: ATORVASTATIN CALCIUM 20 MG TABLET PO SCH (20:41)
[2019-04-09 00:28] VITALS: BP 122/60
[2019-04-09 04:32] VITALS: BP 115/65
[2019-04-09] MEDS: ZOSYN 3.375GM+NS 50ML 50 ML IV SCH ×3 (04:50→21:04)
[2019-04-09] MEDS: INSULIN HUMULIN R 100 UNIT/ML 3ML SQ SCH ×4 (06:37→20:32)
[2019-04-09 08:00] VITALS: BP 132/73
--- NOTE | 2019-04-09 08:00 | NUR ---
PLAN OF CARE REVIEW , PT AAO X 3 , HOB UP . STATED THAT SHE HAD A LARGE BOWEL MOVEMENT. STATED THAT SHE FELT BETTER REVIEW ASSESSMENT , ABD INCISIONAL SITE TO HER MID AREA . NOTED ABOUT 35 MARIAN[address] CLEAN , SITE NOTED NO REDNESS OR DRAINAGE . ABD SOFT TO TOUCH , WITH ACTIVE BOWEL SOUND . ABD BINDER ON FOR ABD SUPPORT. REVIEW I.S. RESP EXCERCISES DEEP BREATHING CARE . . SET UP . CLOSE TO HER, REVIEW ACTIVITY OOB TO CHAIR AND AMBULATING WITH. P. T. STAFF . REVIEW PLAN OF CARE, DENIES ANY PAIN.. . STATED THAT SHE IS JUST SORE BUT NOT FOR PAIN MEDICATION. REVIEW FALL RISK AND CALL LIGHT . IN REACH. SISTER AT THE BEDSIDE, ,
[2019-04-09] MEDS: HOME MEDICATION 1 EACH PO SCH (09:00)
[2019-04-09] MEDS: POLYETHYLENE GLYCOL 3350 17 GM POWD.PACK PO SCH (09:29)
[2019-04-09] MEDS: CLOPIDOGREL BISULFATE 75 MG TAB PO SCH (09:29)
[2019-04-09] MEDS: FAMOTIDINE/PF 20 MG/2 ML VIAL IV SCH (09:29)
[2019-04-09] MEDS: ASPIRIN 81 MG EC TAB PO SCH (09:30)
[2019-04-09] MEDS: BENAZEPRIL HCL 10 MG TABLET PO SCH (09:30)
[2019-04-09] MEDS: METOPROLOL TARTRATE 25 MG TAB PO SCH ×2 (09:30→21:05)
[2019-04-09] MEDS: CALCIUM 600 + VITAMIN D 400 TABLET PO SCH ×2 (09:31→17:47)
[2019-04-09] MEDS: LUBIPROSTONE 24 MCG CAP PO SCH ×2 (09:32→17:47)
[2019-04-09] MEDS: IPRATROPIUM/ALBUTEROL SULFATE 3 ML SOLUTION IH SCH ×2 (11:04→17:37)
[2019-04-09 12:00] VITALS: BP 123/55
--- NOTE | 2019-04-09 13:00 | NUR ---
OOB TO CHAIR, PT. HAS A SHOWER . AND ACTIVITY INCREASE WITH GOOD RESULTS. HAS ANOTHER BM . TOLERATING DIET WELL . OFFER NO C/O OF NAUSEA OR ABD DISTENTION. CALL LIGHT IN REACH,
[2019-04-09 16:00] VITALS: BP 130/74
--- NOTE | 2019-04-09 17:00 | NUR ---
EDUCATION GIVEN . FROM THE HEART STENT, PT HAD DONE. .
[2019-04-09 20:00] VITALS: BP 115/65
[2019-04-09] MEDS: ATORVASTATIN CALCIUM 20 MG TABLET PO SCH (21:04)
[2019-04-10] VITALS: BP 121/59
[2019-04-10] MEDS: IPRATROPIUM/ALBUTEROL SULFATE 3 ML SOLUTION IH SCH ×3 (00:15→11:20)
[2019-04-10 04:00] VITALS: BP 113/56
[2019-04-10 04:56] LABS: BASOPHILS % (AUTO) 0.4 % (0.0-5.0); EOSINOPHILS % (AUTO) 1.8 % (0.0-8.0); HEMATOCRIT 25.8 % (36-48); LYMPHOCYTES % (AUTO) 11.2 % (21.0-51.0); MEAN CORPUSCULAR HEMOGLOBIN 33.4 pg (27.0-33.0); MEAN CORPUSCULAR HGB CONC 34.8 g/dL (32.0-36.0); MEAN CORPUSCULAR VOLUME 95.8 fL (79-99); MONOCYTES % (AUTO) 8.3 % (3.0-13.0); NEUTROPHILS % (AUTO) 78.3 % (40.0-77.0); PLATELET COUNT (AUTO) 170 K/uL (130-400); RED BLOOD CELL COUNT(AUTO) 2.69 MIL/uL (4.00-5.50); RED CELL DISTRIBUTION WIDTH 13.6 % (11.0-15.5); WHITE BLOOD COUNT (AUTO) 9.1 K/uL (4.8-10.8)
[2019-04-10] MEDS: ZOSYN 3.375GM+NS 50ML 50 ML IV SCH ×2 (04:58→13:17)
[2019-04-10 05:10] LABS: CREATININE 0.8 mg/dL (0.5-1.5); POTASSIUM 3.5 mmol/L (3.5-5.1)
--- NOTE | 2019-04-10 06:00 | NUR ---
STATUS Pt verbalized concern that she can't possibly go home and take care of herself while she needs to take care of her as well.
[2019-04-10] MEDS: INSULIN HUMULIN R 100 UNIT/ML 3ML SQ SCH ×3 (06:07→16:00)
[2019-04-10] MEDS: POTASSIUM CHLORIDE 20 MEQ ERTAB PO PRN (06:09)
[2019-04-10 08:00] VITALS: BP 139/70
[2019-04-10] MEDS: HOME MEDICATION 1 EACH PO SCH (09:00)
[2019-04-10] MEDS: CLOPIDOGREL BISULFATE 75 MG TAB PO SCH (09:39)
[2019-04-10] MEDS: CALCIUM 600 + VITAMIN D 400 TABLET PO SCH ×2 (09:39→16:44)
[2019-04-10] MEDS: ASPIRIN 81 MG EC TAB PO SCH (09:39)
[2019-04-10] MEDS: POLYETHYLENE GLYCOL 3350 17 GM POWD.PACK PO SCH (09:39)
[2019-04-10] MEDS: BENAZEPRIL HCL 10 MG TABLET PO SCH (09:39)
[2019-04-10] MEDS: METOPROLOL TARTRATE 25 MG TAB PO SCH (09:39)
[2019-04-10] MEDS: FAMOTIDINE/PF 20 MG/2 ML VIAL IV SCH (09:39)
[2019-04-10] MEDS: LUBIPROSTONE 24 MCG CAP PO SCH ×2 (09:39→16:44)
[2019-04-10 12:00] VITALS: BP 121/65
[2019-04-10 16:00] VITALS: BP 129/62
--- NOTE | 2019-04-10 16:40 | NUR ---
DISCHARGE ATTEMPTED TO CALL REPORT TO [facility]. UNABLE TO GIVEN REPORT TELEPHONE LINES TO [facility] NOT WORKING. NOTIFIED MURAL PAINTER.
--- NOTE | 2019-04-10 17:15 | NUR ---
DISCHARGE GIVEN NEW CONTACT # TO BESSY MONACO. ATTEMPTED TO CALL NEW TELEPHONE # TO GIVE REPORT TO BESSY MONACO. INFORMED I HAD "WRONG NUMBER."
--- NOTE | 2019-04-10 17:50 | NUR ---
DISCHARGE CALL RECEIVED FROM AUSTIN CORONADO LVN FROM [facility]. REPORT GIVEN @ THIS TIME. [facility] TRANSPORT TO TOE LINING CLOSER PT.
--- NOTE | 2019-04-10 18:00 | NUR ---
DISCHARGE VERBAL & WRITTEN DISCHARGE INSTRUCTIONS REVIEWED & GIVEN TO PT. QUESTIONS ENCOURAGED & CLARIFIED. PROPER CARE & ACTIVITY AFTER EXPLORATORY LAPAROTOMY & LHC W/STENT REVIEWED. REINFORCED IMPORTANCE OF TAKING PLAVIX & ASA INDICATED BY SEO CONSULTANT. PT INFORMED MED REC & REPORT GIVEN TO [facility]. TELE NOLAN REMOVED. IV X 2 DISCONTINUED. PT & FAMILY TO GATHER PERSONAL BELONGINGS. AWAITING ON [facility].
--- NOTE | 2019-04-10 18:30 | NUR ---
DISCHARGE [facility] HERE TO TRANSFER PT TO THEIR FACILITY. PT TAKEN TO [facility]ICLE VIA .
--- NOTE | 2019-04-10 18:35 | NUR ---
DC TO [facility] THIS EVENING- SPOKE TO PT PT TEARFUL "LOOK AT ME! I HATE LOOKING LIKE THIS! SHE HAS NO CLOTHES AT THE HOSPITAL TO CHANGE INTO ON DISCHART. SPOKE TO PT AND SISTER NADYA, ADVISED NADYA THAT YES PT CAN WEAR CLOTHES EVERY DAY AT [facility] , ESPECIALLY IF SHE IS DOING THERAPY. PT REASSURED, FAMILY STATES WILL BRING CLOTHES FOR PATIENT TOMORROW Addendum: 04/10/19 at 1837 by MARCIANO JIMENEZ RN CM Amended: Links added.
== END 2019-04-10 18:30 | DRG 335 ==
LOC: EDH 21:31 → EDHIP 23:20 → 4BH 03-31 00:43 → 2CH 04-05 00:25 → 2AH 04-07 11:08 → 3BH 04-08 18:28
PROVIDERS: ADMIT Hospitalist; ATTEND Hospitalist
PROC: 5A1935Z Respiratory Ventilation, Less than 24 Consecutive Hours (ICD-10-PCS; 2019-04-04)
PROC: 0BH17EZ Insertion of Endotracheal Airway into Trachea, Via Natural or Artificial Opening (ICD-10-PCS; 2019-04-04)
PROC: 0DN80ZZ Release Small Intestine, Open Approach (ICD-10-PCS; 2019-04-04 21:20)
PROC: 027034Z Dilation of Coronary Artery, One Artery with Drug-eluting Intraluminal Device, Percutaneous Approach (ICD-10-PCS; principal; 2019-04-05)
PROC: 4A023N7 Measurement of Cardiac Sampling and Pressure, Left Heart, Percutaneous Approach (ICD-10-PCS; 2019-04-05)
PROC: B2111ZZ Fluoroscopy of Multiple Coronary Arteries using Low Osmolar Contrast (ICD-10-PCS; 2019-04-05)
PROC: B2151ZZ Fluoroscopy of Left Heart using Low Osmolar Contrast (ICD-10-PCS; 2019-04-05)
PROC: 5A09357 Assistance with Respiratory Ventilation, Less than 24 Consecutive Hours, Continuous Positive Airway Pressure (ICD-10-PCS; 2019-04-05)
PROC: 5A1935Z Respiratory Ventilation, Less than 24 Consecutive Hours (ICD-10-PCS; 2019-04-05)
DX: K56.50 Intestinal adhesions [bands], unspecified as to partial versus complete obstruction (principal); I21.19 ST elevation (STEMI) myocardial infarction involving other coronary artery of inferior wall; J96.00 Acute respiratory failure, unspecified whether with hypoxia or hypercapnia; R57.0 Cardiogenic shock; J18.1 Lobar pneumonia, unspecified organism; I50.31 Acute diastolic (congestive) heart failure; K44.0 Diaphragmatic hernia with obstruction, without gangrene; E44.0 Moderate protein-calorie malnutrition; J98.11 Atelectasis; I95.9 Hypotension, unspecified; E11.9 Type 2 diabetes mellitus without complications; E87.6 Hypokalemia; E78.5 Hyperlipidemia, unspecified; E83.42 Hypomagnesemia; I25.10 Atherosclerotic heart disease of native coronary artery without angina pectoris; I11.0 Hypertensive heart disease with heart failure; K21.9 Gastro-esophageal reflux disease without esophagitis; M41.9 Scoliosis, unspecified; Z79.02 Long term (current) use of antithrombotics/antiplatelets; Z79.82 Long term (current) use of aspirin; Z79.84 Long term (current) use of oral hypoglycemic drugs; Z82.49 Family history of ischemic heart disease and other diseases of the circulatory system; Z85.038 Personal history of other malignant neoplasm of large intestine; Z90.710 Acquired absence of both cervix and uterus; Z90.49 Acquired absence of other specified parts of digestive tract; Z68.30 Body mass index [BMI] 30.0-30.9, adult
CPT/HCPCS: 36415; 36600; 71045; 74018; 74176; 74177; 80048; 80053; 81001; 82140; 82550; 82803; 82948; 83690; 83735; 83874; 83880; 84484; 85025; 85027; 85610; 85730; 93005; 93306; 93458; 94002; 94003; 94640; 94664; 97039; A4344; C1725; C1769; C1887; C1894; C9600; G0378; J0360; J0461; J0583; J1265; J1644; J2250; J2270; J2405; J2543; J2704; J3010; J3490; J7030; J7120; P9045; Q9967

== ENCOUNTER 2019-05-27 15:13 | Inpatient (IN) | payer OTHER ==
[~2019-05-27] VITALS: Ht 165.1 cm; Wt 56.6 kg
[~2019-05-27 15:13] MED LIST changes: +AMLO5TAB9 PO; +ASPI-1181 PO; -ASPI-1197 PO; +ESOM20CA60 PO; -FE F1CAP33 PO; +FOLIC ACID; -SENN-107 PO
[2019-05-27] MEDS ORDERED: ONDANSETRON HCL 4 MG/2 ML VIAL ONE (17:05)
[2019-05-27] MEDS ORDERED: HYDROMORPHONE 1 MG/1 ML AMP ONE (17:05)
[2019-05-27] MEDS: SODIUM CHLORIDE 0.9% 1000ML 1,000 ML IV SCH (17:22)
[2019-05-27 17:30] LABS: BASOPHILS % (AUTO) 1.1 % (0.0-5.0); EOSINOPHILS % (AUTO) 3.8 % (0.0-8.0); HEMATOCRIT 27.8 % (36-48); LYMPHOCYTES % (AUTO) 16.1 % (21.0-51.0); MEAN CORPUSCULAR HEMOGLOBIN 33.5 pg (27.0-33.0); MEAN CORPUSCULAR HGB CONC 34.1 g/dL (32.0-36.0); MEAN CORPUSCULAR VOLUME 98.1 fL (79-99); MONOCYTES % (AUTO) 6.8 % (3.0-13.0); NEUTROPHILS % (AUTO) 72.2 % (40.0-77.0); PLATELET COUNT (AUTO) 209 K/uL (130-400); RED BLOOD CELL COUNT(AUTO) 2.83 MIL/uL (4.00-5.50); RED CELL DISTRIBUTION WIDTH 14.5 % (11.0-15.5); WHITE BLOOD COUNT (AUTO) 7.3 K/uL (4.8-10.8)
[2019-05-27] MEDS ORDERED: ACETAMINOPHEN 325 MG TAB PO PRN (17:30)
[2019-05-27] MEDS ORDERED: ONDANSETRON HCL 4 MG/2 ML VIAL IV PRN (17:30)
[2019-05-27 17:44] LABS: INR 0.97 (0.85-1.15); PROTHROMBIN TIME 10.2 SEC (9.6-11.6)
[2019-05-27 17:46] LABS: CREATININE 1.5 mg/dL (0.5-1.5); POTASSIUM 3.7 mmol/L (3.5-5.1)
[2019-05-27 17:56] LABS: ALBUMIN 3.1 g/dL (3.5-5.0); BILIRUBIN,TOTAL 0.3 mg/dL (0.2-1.0); TOTAL PROTEIN, SERUM 6.4 g/dL (6.0-8.3)
[2019-05-27] MEDS ORDERED: SODIUM CHLORIDE 0.9% 1000ML 1,000 ML IV ONE (18:01)
[2019-05-27 18:11] LABS: PARTIAL THROMBOPLASTIN TIME 25.4 SEC (26.3-35.5)
[2019-05-27 20:07] LABS: APPEARANCE,URINE Clear (CLEAR); BILIRUBIN,URINE Negative (NEGATIVE); COLOR,URINE Yellow (YELLOW); GLUCOSE, URINE (UA) Negative (NEGATIVE); KETONES,URINE Negative (NEGATIVE); LEUKOCYTE ESTERASE ,URINE Negative (NEGATIVE); NITRATE,URINE Negative (NEGATIVE); OCCULT BLOOD,URINE Negative (NEGATIVE); PROTEIN,URINE Negative (NEGATIVE)
[2019-05-27] MEDS ORDERED: MORPHINE SULFATE 2 MG/ML 1ML SYG ONE (21:27)
--- NOTE | 2019-05-27 21:40 | NUR ---
admission. PT ADMITTED INTO ROOM 407, TRANSFERRED FROM ER VIA STRETCHER. PT AWAKE, ALERT AND RESPONSIVE. PREVIOUSLY MEDICATED IN ER BEFORE BEING TRANSFERRED, STATED SHE FEELS OK FOR NOW. PT AND DAUGHTER AT BEDSIDE ORIENTED TO ROOM, BED IN LOWEST POSITION, CALL OBREGON WITHIN REACH. Addendum: 05/27/19 at 2205 by WENDIE ANDERSON RN Amended: Links added.
[2019-05-27 21:42] VITALS: BP 126/63
[2019-05-27] MEDS ORDERED: ATOR20TA65 PO (23:34)
[2019-05-27] MEDS ORDERED: METO50TA18 PO (23:34)
[2019-05-27] MEDS ORDERED: CLOP75TA32 PO (23:34)
[2019-05-27 23:37] VITALS: BP 118/44
[2019-05-28 03:57] VITALS: BP 114/43
[2019-05-28] MEDS: SODIUM CHLORIDE 0.9% 1000ML 1,000 ML IV SCH (04:04)
[2019-05-28 07:52] VITALS: BP 125/58
[2019-05-28] MEDS: CALCIUM 600 + VITAMIN D 400 TABLET PO SCH ×2 (08:36→17:20)
[2019-05-28] MEDS: ATENOLOL PO SCH (08:52)
[2019-05-28] MEDS: AMLODIPINE BESYLATE 5 MG TAB PO SCH (08:52)
[2019-05-28] MEDS: CHLORTHALIDONE PO SCH (08:52)
[2019-05-28] MEDS: BENAZEPRIL HCL 10 MG TABLET PO SCH (08:52)
[2019-05-28] MEDS: ASPIRIN 81 MG EC TAB PO SCH ×2 (08:52→19:05)
[2019-05-28] MEDS: METOPROLOL TARTRATE 50 MG TAB PO SCH ×2 (08:57→20:10)
[2019-05-28] MEDS: FAMOTIDINE/PF 20 MG/2 ML VIAL IV SCH (08:57)
[2019-05-28] MEDS: MORPHINE SULFATE 2 MG/ML 1ML SYG IV PRN ×2 (08:59→22:17)
[2019-05-28] MEDS ORDERED: CLOPIDOGREL BISULFATE 75 MG TAB PO SCH (09:00)
[2019-05-28] MEDS ORDERED: ENOXAPARIN SODIUM 40 MG/0.4 ML SYRINGE SQ SCH (09:00)
[2019-05-28 11:15] VITALS: BP 115/47
[2019-05-28] MEDS ORDERED: PHARMACY COMMUNICATION MISC SCH (12:15)
--- NOTE | 2019-05-28 14:35 | NUR ---
RD Notification Pt admitted for L. Hip Fracture. Pt NPO at time of screen, pending possible surgery. When medically feasible, Rec to adv diet as tolerated to goal of 75gm CCD. Pt monitored labs: BUN 46, GFR 36, Glu 106, Alk 42, Alb 3.1. RD to continue to monitor. Please notify RD as nutritional concerns arise. Thank you. Addendum: 05/28/19 at [address] Amended: Links added.
[2019-05-28 14:48] LABS: PARTIAL THROMBOPLASTIN TIME 28.1 SEC (26.3-35.5); PROTHROMBIN TIME 10.5 SEC (9.6-11.6)
[2019-05-28] MEDS ORDERED: HEPARIN SODIUM 5000UNIT/ML 1ML VIAL ONE (15:57)
[2019-05-28] MEDS ORDERED: HEPARIN SODIUM 5000UNIT/ML 1ML VIAL SQ SCH (16:00)
[2019-05-28] MEDS ORDERED: HEPARIN SODIUM 5000UNIT/ML 1ML VIAL IV SCH (16:15)
[2019-05-28] MEDS: HEPARIN 25,000 UNITS/250 ML IV PRN (16:16)
[2019-05-28 16:22] VITALS: BP 118/53
[2019-05-28 19:16] VITALS: BP 120/53
[2019-05-28] MEDS: ATORVASTATIN CALCIUM 20 MG TABLET PO SCH (20:10)
[2019-05-28 22:36] LABS: INR 1.04 (0.85-1.15); PROTHROMBIN TIME 10.9 SEC (9.6-11.6)
[2019-05-28 22:39] LABS: PARTIAL THROMBOPLASTIN TIME > 120.0 SEC (26.3-35.5)
[2019-05-28] MEDS ORDERED: MORPHINE SULFATE 4 MG/1ML SYG ONE (22:46)
[2019-05-28 23:06] VITALS: BP 132/52
[2019-05-29 04:00] VITALS: BP 127/46
[2019-05-29 05:38] LABS: HEMATOCRIT 27.8 % (36-48); MEAN CORPUSCULAR HEMOGLOBIN 33.5 pg (27.0-33.0); MEAN CORPUSCULAR HGB CONC 33.8 g/dL (32.0-36.0); MEAN CORPUSCULAR VOLUME 99.1 fL (79-99); PLATELET COUNT (AUTO) 183 K/uL (130-400); RED CELL DISTRIBUTION WIDTH 14.3 % (11.0-15.5)
[2019-05-29 05:43] LABS: CREATININE 1.1 mg/dL (0.5-1.5); POTASSIUM 4.1 mmol/L (3.5-5.1)
[2019-05-29 08:00] VITALS: BP 130/44
[2019-05-29] MEDS: CHLORTHALIDONE PO SCH (09:00)
[2019-05-29] MEDS: ATENOLOL PO SCH (09:00)
[2019-05-29] MEDS: BENAZEPRIL HCL 10 MG TABLET PO SCH (09:00)
[2019-05-29] MEDS: AMLODIPINE BESYLATE 5 MG TAB PO SCH (11:23)
[2019-05-29] MEDS: FAMOTIDINE/PF 20 MG/2 ML VIAL IV SCH (11:24)
[2019-05-29] MEDS: METOPROLOL TARTRATE 50 MG TAB PO SCH ×2 (11:24→19:39)
[2019-05-29] MEDS: ASPIRIN 81 MG EC TAB PO SCH (11:24)
[2019-05-29] MEDS: CALCIUM 600 + VITAMIN D 400 TABLET PO SCH ×2 (11:24→17:23)
[2019-05-29] MEDS: CYCLOBENZAPRINE HCL 10 MG TABLET PO SCH ×3 (11:24→19:38)
[2019-05-29] MEDS: MORPHINE SULFATE 2 MG/ML 1ML SYG IV PRN ×3 (11:25→18:18)
[2019-05-29 11:36] VITALS: BP 124/49
[2019-05-29 12:04] LABS: INR 0.99 (0.85-1.15); PARTIAL THROMBOPLASTIN TIME 74.5 SEC (26.3-35.5); PROTHROMBIN TIME 10.4 SEC (9.6-11.6)
--- NOTE | 2019-05-29 15:00 | NUR ---
INITIAL MET W PT, S/P HIP FRACTURE, BROTHER WESLY AT BEDSIDE PT LIVES W SPOUSE WHO IS ON HOSPICE AND HAS BEE FIRST. PT USES NO DME, IN [place] OF ADLS, AND HAS BEEN TO [facility] BEFORE BUT IS NOT DECIDED WHERE TO GO THIS TIME. CM TO FOLLOW Addendum: 05/30/19 at 1504 by MARCIANO JIMENEZ RN CM Amended: Links added.
[2019-05-29] MEDS ORDERED: HEPARIN SODIUM 5000UNIT/ML 1ML VIAL IV SCH (16:00)
[2019-05-29 16:19] VITALS: BP 126/56
[2019-05-29] MEDS: HEPARIN 25,000 UNITS/250 ML IV PRN (18:00)
[2019-05-29 18:44] LABS: INR 0.95 (0.85-1.15); PARTIAL THROMBOPLASTIN TIME 69.6 SEC (26.3-35.5)
[2019-05-29 19:30] VITALS: BP 115/49
[2019-05-29] MEDS: ATORVASTATIN CALCIUM 20 MG TABLET PO SCH (19:39)
[2019-05-29] MEDS: MORPHINE SULFATE 4 MG/1ML SYG IV PRN (22:20)
[2019-05-29 23:42] VITALS: BP 107/49
[2019-05-30] MEDS: MORPHINE SULFATE 4 MG/1ML SYG IV PRN ×4 (01:45→22:49)
[2019-05-30 03:49] VITALS: BP 131/70
[2019-05-30 06:06] LABS: HEMATOCRIT 27.5 % (36-48); MEAN CORPUSCULAR HEMOGLOBIN 33.5 pg (27.0-33.0); MEAN CORPUSCULAR HGB CONC 34.4 g/dL (32.0-36.0); MEAN CORPUSCULAR VOLUME 97.2 fL (79-99); PLATELET COUNT (AUTO) 202 K/uL (130-400); RED BLOOD CELL COUNT(AUTO) 2.83 MIL/uL (4.00-5.50); RED CELL DISTRIBUTION WIDTH 13.9 % (11.0-15.5); WHITE BLOOD COUNT (AUTO) 8.1 K/uL (4.8-10.8)
[2019-05-30 06:20] LABS: CREATININE 1.1 mg/dL (0.5-1.5)
[2019-05-30 07:52] VITALS: BP 131/43
[2019-05-30] MEDS: CHLORTHALIDONE PO SCH (09:00)
[2019-05-30] MEDS: ATENOLOL PO SCH (09:00)
[2019-05-30] MEDS: ASPIRIN 81 MG EC TAB PO SCH (09:27)
[2019-05-30] MEDS: CALCIUM 600 + VITAMIN D 400 TABLET PO SCH ×2 (09:27→15:35)
[2019-05-30] MEDS: AMLODIPINE BESYLATE 5 MG TAB PO SCH (09:27)
[2019-05-30] MEDS: METOPROLOL TARTRATE 50 MG TAB PO SCH ×2 (09:27→20:03)
[2019-05-30] MEDS: CYCLOBENZAPRINE HCL 10 MG TABLET PO SCH ×3 (09:27→20:03)
[2019-05-30] MEDS: FAMOTIDINE/PF 20 MG/2 ML VIAL IV SCH (09:27)
[2019-05-30] MEDS: BENAZEPRIL HCL 10 MG TABLET PO SCH (09:28)
[2019-05-30 12:00] VITALS: BP 111/69
[2019-05-30 12:30] LABS: INR 0.94 (0.85-1.15); PARTIAL THROMBOPLASTIN TIME 53.1 SEC (26.3-35.5); PROTHROMBIN TIME 9.9 SEC (9.6-11.6)
[2019-05-30 16:00] VITALS: BP 116/52
[2019-05-30 19:05] VITALS: BP 129/58
[2019-05-30] MEDS: ATORVASTATIN CALCIUM 20 MG TABLET PO SCH (20:03)
[2019-05-30 23:31] VITALS: BP 123/59
[2019-05-31] VITALS (26 sets, daily range): BP systolic 118–149; BP diastolic 40–71
[2019-05-31 00:40] LABS: INR 0.95 (0.85-1.15); PARTIAL THROMBOPLASTIN TIME 48.5 SEC (26.3-35.5)
[2019-05-31 04:25] LABS: HEMATOCRIT 28.1 % (36-48); MEAN CORPUSCULAR HEMOGLOBIN 33.2 pg (27.0-33.0); MEAN CORPUSCULAR HGB CONC 33.8 g/dL (32.0-36.0); MEAN CORPUSCULAR VOLUME 98.3 fL (79-99); PLATELET COUNT (AUTO) 196 K/uL (130-400); RED BLOOD CELL COUNT(AUTO) 2.86 MIL/uL (4.00-5.50); RED CELL DISTRIBUTION WIDTH 13.8 % (11.0-15.5); WHITE BLOOD COUNT (AUTO) 6.5 K/uL (4.8-10.8)
[2019-05-31 04:37] LABS: POTASSIUM 3.9 mmol/L (3.5-5.1)
--- NOTE | 2019-05-31 07:53 | NUR ---
TO OR HOLDING PATIENT HAS BEEN TRANSFERRED TO OR HOLDING AREA ACCOMPANIED BY FAMILY IN STABLE CONDITION.
[2019-05-31] MEDS: CALCIUM 600 + VITAMIN D 400 TABLET PO SCH ×2 (08:00→16:17)
[2019-05-31] MEDS: FAMOTIDINE/PF 20 MG/2 ML VIAL IV SCH (08:02)
[2019-05-31] MEDS: ASPIRIN 81 MG EC TAB PO SCH (08:03)
[2019-05-31] MEDS: CYCLOBENZAPRINE HCL 10 MG TABLET PO SCH ×3 (08:03→20:55)
[2019-05-31] MEDS: METOPROLOL TARTRATE 50 MG TAB PO SCH ×2 (08:04→20:55)
[2019-05-31] MEDS: ATENOLOL PO SCH (08:04)
[2019-05-31] MEDS: CHLORTHALIDONE PO SCH (08:04)
[2019-05-31] MEDS: AMLODIPINE BESYLATE 5 MG TAB PO SCH (08:04)
[2019-05-31] MEDS: BENAZEPRIL HCL 10 MG TABLET PO SCH (08:04)
[2019-05-31] MEDS ORDERED: LACTATED RINGERS 1000ML 1,000 ML IV ONE (08:11)
[2019-05-31] MEDS ORDERED: PHENYLEPHRINE HCL 10 MG/ML 1ML VIAL IV ONE (08:12)
[2019-05-31] MEDS ORDERED: LIDOCAINE PF 2% 5ML ABBOJECT ONE (08:12)
[2019-05-31] MEDS ORDERED: ROCURONIUM 10MG/1ML SYR 10 MG/ML ML ONE (08:12)
[2019-05-31] MEDS ORDERED: ONDANSETRON HCL 4 MG/2 ML VIAL ONE (08:12)
[2019-05-31] MEDS ORDERED: PROPOFOL 10 MG/ML 20ML VIAL IV ONE (08:12)
[2019-05-31] MEDS ORDERED: NEOMY SULF/POLYMYXIN B SULFATE 1 ML AMPUL IR ONE (08:23)
[2019-05-31] MEDS ORDERED: BUPIVACAINE/EPI/PF 0.5% 30ML VIAL IJ ONE (08:23)
[2019-05-31] MEDS: CEFAZOLIN SODIUM 1 GM VIAL ONE ×2 (08:30→09:06)
[2019-05-31] MEDS: KETOROLAC TROMETHAMINE 30MG/ML ONE ×2 (09:05→09:06)
[2019-05-31] MEDS ORDERED: GLYCOPYRROLATE 1 MG/5 ML SYRINGE ONE (09:12)
[2019-05-31] MEDS ORDERED: NEOSTIGMINE 5MG/5ML SYR IV ONE (09:12)
[2019-05-31] MEDS ORDERED: FENTANYL CITRATE PF 50 MCG/1 ML 2ML VIAL ONE (09:14)
--- NOTE | 2019-05-31 10:37 | NUR ---
POST SURGERY PATIENT RECEIVED FROM PACU IN STABLE CONDITION. SHE IS AWAKE AND ALERT. REORIENTED TO ROOM AND USE OF CALL LIGHT. FAMILY WILL BE NOTIFIED OF PATIENT'S ARRIVAL TO ROOM. POST OP V/S HAVE BEEN INITIATED. DRESSING TO LEFT HIP IS DRY AND INTACT. WILL CONTINUE TO MONITOR.
--- NOTE | 2019-05-31 16:07 | NUR ---
RD Follow up Pt s/p surgery day 1. Pt tolerating Clear Liquid Diet. Rec to advance diet as tolerated to 75gm CCD. Pt last noted LBM 05/27/19. Pt monitored labs: BUN 23, GFR 57. RD to continue to monitor. Please notify as nutrition concern arise. Thank you. Addendum: 05/31/19 at [address] Amended: Links added.
[2019-05-31 17:41] LABS: INR 0.98 (0.85-1.15); PARTIAL THROMBOPLASTIN TIME 30.8 SEC (26.3-35.5); PROTHROMBIN TIME 10.3 SEC (9.6-11.6)
[2019-05-31] MEDS: ATORVASTATIN CALCIUM 20 MG TABLET PO SCH (20:55)
[2019-05-31] MEDS ORDERED: KETOROLAC TROMETHAMINE 15MG/ML ONE (23:57)
[2019-06-01] MEDS ORDERED: KETOROLAC TROMETHAMINE 15MG/ML IM PRN (00:30)
[2019-06-01] MEDS ORDERED: LACTULOSE 20 GM/30 ML UDCUP PO PRN (00:30)
[2019-06-01] MEDS: HEPARIN 25,000 UNITS/250 ML IV PRN (01:51)
[2019-06-01 03:30] VITALS: BP 165/65
[2019-06-01 04:17] LABS: MEAN CORPUSCULAR HGB CONC 33.9 g/dL (32.0-36.0); MEAN CORPUSCULAR VOLUME 97.2 fL (79-99); PLATELET COUNT (AUTO) 148 K/uL (130-400); RED BLOOD CELL COUNT(AUTO) 1.96 MIL/uL (4.00-5.50); RED CELL DISTRIBUTION WIDTH 13.9 % (11.0-15.5); WHITE BLOOD COUNT (AUTO) 5.1 K/uL (4.8-10.8)
[2019-06-01 04:24] LABS: HEMATOCRIT 19.1 % (36-48)
[2019-06-01 04:30] LABS: CREATININE 0.7 mg/dL (0.5-1.5); INR 1.11 (0.85-1.15); PARTIAL THROMBOPLASTIN TIME 75.8 SEC (26.3-35.5); POTASSIUM 3.4 mmol/L (3.5-5.1); PROTHROMBIN TIME 11.6 SEC (9.6-11.6)
[2019-06-01] MEDS ORDERED: POTASSIUM CHLORIDE 20MEQ/100ML 100 ML IV PRN (05:45)
[2019-06-01] MEDS ORDERED: LIDOCAINE HCL-MPF 1% 2ML VIAL IVP PRN (05:45)
[2019-06-01] MEDS ORDERED: POTASSIUM CHLORIDE 10% ELIXIR 20 MEQ/15 ML UDCUP PO PRN (05:45)
[2019-06-01 05:49] LABS: INR 1.02 (0.85-1.15); PARTIAL THROMBOPLASTIN TIME 49.7 SEC (26.3-35.5); PROTHROMBIN TIME 10.7 SEC (9.6-11.6)
[2019-06-01] MEDS ORDERED: POTASSIUM CHLORIDE 20 MEQ ERTAB PO ONE (06:10)
[2019-06-01 07:43] VITALS: BP 141/63
--- NOTE | 2019-06-01 07:59 | NUR ---
H&H 6.5 and 19.1. Transfusion of first unit PRBC's already in progress. Per report from night nurse, mod amt bleeding from left hip incision required reinforcement of dressing. Currently, dressing is clean, dry, and intact. Reported all of the above to Dr. Head. Rec'd orders to stop heparin gtt x 24 hours, then resume.
[2019-06-01] MEDS: CALCIUM 600 + VITAMIN D 400 TABLET PO SCH ×2 (08:00→17:00)
[2019-06-01] MEDS: CHLORTHALIDONE PO SCH (09:00)
[2019-06-01] MEDS: CYCLOBENZAPRINE HCL 10 MG TABLET PO SCH ×3 (09:00→19:25)
[2019-06-01] MEDS: BENAZEPRIL HCL 10 MG TABLET PO SCH ×2 (09:00→11:10)
[2019-06-01] MEDS: ATENOLOL PO SCH (09:00)
--- NOTE | 2019-06-01 09:00 | NUR ---
Pt sleeping, rouses easily but goes back to sleep. Does not want scheduled meds or breakfast at present.
--- NOTE | 2019-06-01 10:20 | NUR ---
First unit prbc's transfusion complete. No transfusion reaction noted.
[2019-06-01 10:51] VITALS: BP 152/67
--- NOTE | 2019-06-01 10:55 | NUR ---
Initiated transfusion of 2nd unit PRBC's via rt wrist 22g piv. Pre transfusion vitals recorded, verification completed x 2 nurses (Jerry Mcfadden RN and Hubert Ford RN). Continuous monitoring in progress.
[2019-06-01] MEDS: FAMOTIDINE/PF 20 MG/2 ML VIAL IV SCH (11:10)
[2019-06-01] MEDS: METOPROLOL TARTRATE 50 MG TAB PO SCH ×2 (11:10→21:05)
[2019-06-01] MEDS: AMLODIPINE BESYLATE 5 MG TAB PO SCH (11:10)
--- NOTE | 2019-06-01 14:50 | NUR ---
2nd unit PRBC's complete. No s/s transfusion reaction.
[2019-06-01 16:17] VITALS: BP 148/67
[2019-06-01 19:43] VITALS: BP 140/66
[2019-06-01] MEDS: ATORVASTATIN CALCIUM 20 MG TABLET PO SCH (21:05)
[2019-06-01] MEDS: POTASSIUM CHLORIDE 20 MEQ ERTAB PO PRN ×2 (21:05→23:41)
[2019-06-02] VITALS (7 sets, daily range): BP systolic 116–147; BP diastolic 53–67
[2019-06-02 04:25] LABS: HEMATOCRIT 33.9 % (36-48); MEAN CORPUSCULAR HEMOGLOBIN 32.4 pg (27.0-33.0); MEAN CORPUSCULAR HGB CONC 34.2 g/dL (32.0-36.0); MEAN CORPUSCULAR VOLUME 94.7 fL (79-99); PLATELET COUNT (AUTO) 187 K/uL (130-400); RED BLOOD CELL COUNT(AUTO) 3.58 MIL/uL (4.00-5.50); RED CELL DISTRIBUTION WIDTH 15.2 % (11.0-15.5); WHITE BLOOD COUNT (AUTO) 8.4 K/uL (4.8-10.8)
[2019-06-02 04:39] LABS: CREATININE 1.1 mg/dL (0.5-1.5); POTASSIUM 4.1 mmol/L (3.5-5.1)
[2019-06-02] MEDS ORDERED: KETOROLAC TROMETHAMINE 15MG/ML IV PRN (06:30)
[2019-06-02] MEDS: FAMOTIDINE/PF 20 MG/2 ML VIAL IV SCH (08:11)
[2019-06-02] MEDS: METOPROLOL TARTRATE 50 MG TAB PO SCH ×2 (08:11→21:36)
[2019-06-02] MEDS: CALCIUM 600 + VITAMIN D 400 TABLET PO SCH ×2 (08:11→16:56)
[2019-06-02] MEDS: AMLODIPINE BESYLATE 5 MG TAB PO SCH (08:11)
[2019-06-02] MEDS: CYCLOBENZAPRINE HCL 10 MG TABLET PO SCH ×3 (08:26→21:00)
[2019-06-02] MEDS: BENAZEPRIL HCL 10 MG TABLET PO SCH (08:26)
[2019-06-02] MEDS: ATENOLOL PO SCH (08:26)
[2019-06-02] MEDS: CHLORTHALIDONE PO SCH (08:26)
[2019-06-02] MEDS ORDERED: BISACODYL 10 MG SUPP.RECT RC PRN (09:15)
[2019-06-02] MEDS: CLOPIDOGREL BISULFATE 75 MG TAB PO SCH (09:36)
[2019-06-02] MEDS: ASPIRIN 81MG TAB.CHEW PO SCH (09:36)
--- NOTE | 2019-06-02 13:11 | NUR ---
Message left on Dr. Leone' voice mail requesting call back. Dr. Castro made aware; he stated that consult can wait for am if no response.
[2019-06-02] MEDS ORDERED: MAGNESIUM CITRATE 296 ML SOLUTION PO SCH (16:30)
--- NOTE | 2019-06-02 18:30 | NUR ---
Fleets enema given x [address] Head's order. Awaiting results.
--- NOTE | 2019-06-02 20:00 | NUR ---
ROUNDS VISITED WITH PATIENT. POC DISCUSSED. NO NEW ORDERS AT THIS TIME. PATIENT AND FAMILY AT BEDSIDE AWARE. NO QUESTIONS OR CONCERNS VOICED AT THIS TIME. VITALS STABLE. AFEBRILE. BM NOTED. NELSON CATHETER DISCONTINUED. TOLERATED WELL. VOIDING WITHOUT DIFFICULTY. NO SIGNS OF DISTRESS NOTED. CALL LIGHT WITHIN REACH. WILL CONTINUE TO BE OBSERVED. Addendum: 06/03/19 at 0743 by ANN EVANS RN RN Amended: Links added.
[2019-06-02] MEDS: ATORVASTATIN CALCIUM 20 MG TABLET PO SCH (21:36)
--- NOTE | 2019-06-03 00:30 | NUR ---
ROUNDS PATIENT CONFUSED AT THIS TIME. PATIENT STATES THAT THERE ARE ANTS ALL OVER THE ROOM AND SHE CANNOT SLEEP. REORIENTED TO PLACE AND SITUATION. NIECE AT BEDSIDE. VITALS STABLE. AFEBRILE. CALL LIGHT WITHIN REACH. WILL CONTINUE TO MONITOR. Addendum: 06/03/19 at 0751 by ANN EVANS RN RN Amended: Links added.
[2019-06-03 04:00] VITALS: BP 126/58
[2019-06-03 05:42] LABS: CREATININE 1.1 mg/dL (0.5-1.5); HEMATOCRIT 32.7 % (36-48); MEAN CORPUSCULAR HEMOGLOBIN 32.5 pg (27.0-33.0); MEAN CORPUSCULAR HGB CONC 34.6 g/dL (32.0-36.0); MEAN CORPUSCULAR VOLUME 93.8 fL (79-99); PLATELET COUNT (AUTO) 200 K/uL (130-400); POTASSIUM 4.1 mmol/L (3.5-5.1); RED BLOOD CELL COUNT(AUTO) 3.48 MIL/uL (4.00-5.50); RED CELL DISTRIBUTION WIDTH 14.5 % (11.0-15.5); WHITE BLOOD COUNT (AUTO) 7.4 K/uL (4.8-10.8)
[2019-06-03 06:12] LABS: EOSINOPHILS % (MANUAL) 3 % (1-6); LYMPHOCYTES % (MANUAL) 15 % (22-44); MAN.DIFF COMMENT-IMPRESSION MANUAL DIFFERENTIAL; MONOCYTES % (MANUAL) 12 % (2-9); SEGMENTED NEUTROPHILS % 70 % (40-70)
[2019-06-03 07:42] VITALS: BP 142/61
[2019-06-03] MEDS ORDERED: APIX2.5T PO (08:28)
[2019-06-03] MEDS ORDERED: HYDR-4457 PO (08:29)
[2019-06-03] MEDS: CYCLOBENZAPRINE HCL 10 MG TABLET PO SCH ×2 (08:38→13:54)
[2019-06-03] MEDS: ASPIRIN 81MG TAB.CHEW PO SCH (08:38)
[2019-06-03] MEDS: METOPROLOL TARTRATE 50 MG TAB PO SCH (08:38)
[2019-06-03] MEDS: FAMOTIDINE/PF 20 MG/2 ML VIAL IV SCH (08:38)
[2019-06-03] MEDS: CALCIUM 600 + VITAMIN D 400 TABLET PO SCH ×2 (08:38→17:00)
[2019-06-03] MEDS: ATENOLOL PO SCH (08:38)
[2019-06-03] MEDS: AMLODIPINE BESYLATE 5 MG TAB PO SCH (08:38)
[2019-06-03] MEDS: CLOPIDOGREL BISULFATE 75 MG TAB PO SCH (08:38)
[2019-06-03] MEDS: CHLORTHALIDONE PO SCH (08:38)
[2019-06-03] MEDS: BENAZEPRIL HCL 10 MG TABLET PO SCH (09:00)
--- NOTE | 2019-06-03 09:30 | NUR ---
cm note faxed clinical update, including PT notes to [facility],spoke to fabiola martinez at [facility], states has received and has submitted for authorization. still pending approval
[2019-06-03 11:21] VITALS: BP 141/59
--- NOTE | 2019-06-03 17:00 | NUR ---
cm note received approval from fabiola borjas at [facility].pt can go today. updated primary nurse Donavan. and updated pt /family.
[2019-06-03 17:08] VITALS: BP 120/55
--- NOTE | 2019-06-03 18:51 | NUR ---
DC INST GIVEN TO BROTHER USING TEACH BACK, IV CATHETER REMOVED INTACT, DC TO [facility]
== END 2019-06-03 19:42 | DRG 481 ==
LOC: EDH 15:13 → EDHIP 17:22 → 4BH 20:20
PROVIDERS: ADMIT Hospitalist; ATTEND Hospitalist
PROC: 0QS706Z Reposition Left Upper Femur with Intramedullary Internal Fixation Device, Open Approach (ICD-10-PCS; principal; 2019-05-31 08:53)
PROC: 30233N1 Transfusion of Nonautologous Red Blood Cells into Peripheral Vein, Percutaneous Approach (ICD-10-PCS; 2019-06-01)
DX: S72.142A Displaced intertrochanteric fracture of left femur, initial encounter for closed fracture (principal); F05 Delirium due to known physiological condition; C18.9 Malignant neoplasm of colon, unspecified; R00.1 Bradycardia, unspecified; I10 Essential (primary) hypertension; E78.5 Hyperlipidemia, unspecified; K21.9 Gastro-esophageal reflux disease without esophagitis; I25.10 Atherosclerotic heart disease of native coronary artery without angina pectoris; W01.0XXA Fall on same level from slipping, tripping and stumbling without subsequent striking against object, initial encounter; F39 Unspecified mood [affective] disorder; F03.90 Unspecified dementia, unspecified severity, without behavioral disturbance, psychotic disturbance, mood disturbance, and anxiety; D50.0 Iron deficiency anemia secondary to blood loss (chronic); E11.9 Type 2 diabetes mellitus without complications; Z79.84 Long term (current) use of oral hypoglycemic drugs; Z90.49 Acquired absence of other specified parts of digestive tract; Z95.5 Presence of coronary angioplasty implant and graft; Z82.49 Family history of ischemic heart disease and other diseases of the circulatory system; Z80.42 Family history of malignant neoplasm of prostate; I25.2 Old myocardial infarction; Y93.89 Activity, other specified; Y92.89 Other specified places as the place of occurrence of the external cause; Y99.8 Other external cause status
CPT/HCPCS: 36415; 36430; 70450; 71045; 72125; 73502; 73503; 80048; 80053; 81003; 82550; 82948; 84484; 85025; 85027; 85610; 85730; 86850; 86900; 86901; 86922; 93005; 97039; G0378; J0690; J1170; J1644; J1885; J2001; J2270; J2370; J2405; J2704; J2710; J3010; J3490; J7030; J7120; P9016

== ENCOUNTER → 2019-09-17 | Outpatient (CLI) | payer OTHER ==
[~2019-09-17] MED LIST changes: +APIX2.5T PO; -ASPI-1181 PO; -ATEN1TAB3 PO; +ATOR20TA65 PO; +CLOP75TA32 PO; +HYDR-4457 PO; +METO50TA18 PO; -PRAV40TA3 PO
== END | disposition home or self-care (01) ==
LOC: RAH 09:25
PROVIDERS: ATTEND Student in an Organized Health Care Education/Training Program
DX: K44.9 Diaphragmatic hernia without obstruction or gangrene (principal); M48.56XA Collapsed vertebra, not elsewhere classified, lumbar region, initial encounter for fracture; M47.815 Spondylosis without myelopathy or radiculopathy, thoracolumbar region; M41.9 Scoliosis, unspecified; I25.10 Atherosclerotic heart disease of native coronary artery without angina pectoris; N28.1 Cyst of kidney, acquired; K57.90 Diverticulosis of intestine, part unspecified, without perforation or abscess without bleeding; I70.0 Atherosclerosis of aorta
CPT/HCPCS: 74176

== ENCOUNTER 2020-01-02 08:17 | Emergency (ER) | payer OTHER ==
[2020-01-02 08:47] LABS: BASOPHILS % (AUTO) 0.9 % (0.0-5.0); EOSINOPHILS % (AUTO) 5.1 % (0.0-8.0); HEMATOCRIT 32.7 % (36-48); LYMPHOCYTES % (AUTO) 17.2 % (21.0-51.0); MEAN CORPUSCULAR HGB CONC 32.7 g/dL (32.0-36.0); MEAN CORPUSCULAR VOLUME 97.9 fL (79-99); MONOCYTES % (AUTO) 8.8 % (3.0-13.0); NEUTROPHILS % (AUTO) 67.7 % (40.0-77.0); PLATELET COUNT (AUTO) 229 K/uL (130-400); RED BLOOD CELL COUNT(AUTO) 3.34 MIL/uL (4.00-5.50); RED CELL DISTRIBUTION WIDTH 12.6 % (11.0-15.5); WHITE BLOOD COUNT (AUTO) 6.9 K/uL (4.8-10.8)
[2020-01-02 08:54] LABS: CREATININE 1.6 mg/dL (0.5-1.5); POTASSIUM 4.2 mmol/L (3.5-5.1)
[2020-01-02 09:02] LABS: ALBUMIN 3.7 g/dL (3.5-5.0); BILIRUBIN,TOTAL 0.5 mg/dL (0.2-1.0); TOTAL PROTEIN, SERUM 7.8 g/dL (6.0-8.3)
[2020-01-02 09:05] LABS: APPEARANCE,URINE Clear (CLEAR); BILIRUBIN,URINE Negative (NEGATIVE); COLOR,URINE Yellow (YELLOW); GLUCOSE, URINE (UA) Negative (NEGATIVE); KETONES,URINE Negative (NEGATIVE); LEUKOCYTE ESTERASE ,URINE Small (NEGATIVE); NITRATE,URINE Negative (NEGATIVE); OCCULT BLOOD,URINE Small (NEGATIVE); PROTEIN,URINE Negative (NEGATIVE); UROBILINOGEN,URINE 0.2 mg/dL (0.2-1.0)
[2020-01-02 09:28] LABS: BACTERIA,URINE Rare /HPF (None Seen); RBC,URINE 0-1 /HPF (0-1); SQUAMOUS EPITHELIAL CELL,UR Rare /HPF (0-2)
[2020-01-02] MEDS ORDERED: CYCLOBENZAPRINE HCL 10 MG TABLET ONE (09:57)
[2020-01-02] MEDS ORDERED: MORPHINE SULFATE 4 MG/1ML SYG ONE (09:57)
[2020-01-02] MEDS ORDERED: SODIUM CHLORIDE 0.9% 500ML 500 ML IV ONE (09:57)
== END 2020-01-02 12:39 | disposition home or self-care (01) ==
LOC: EDH 08:17
DX: M84.48XA Pathological fracture, other site, initial encounter for fracture (principal); M54.5 Low back pain; E11.9 Type 2 diabetes mellitus without complications
CPT/HCPCS: 36415; 72128; 72131; 80053; 81001; 85025; 96374; 99284; J2270; J7040